=== PATIENT | female | born 1985 | race African-American/Black ===

== ENCOUNTER 2017-01-17 08:10 | Inpatient (IN) | payer OTHER ==
[~2017-01-17] VITALS: Ht 162.6 cm; Wt 66.0 kg
[2017-01-17] VITALS (7 sets, daily range): BP systolic 102–116; BP diastolic 58–71
[~2017-01-17 08:10] MED LIST: DOXYCYCLINE HY100 MG PO; PRENATAL TABLE1 EAC3 PO
[2017-01-17 09:27] LABS: EOSINOPHIL (%) 0.4 % (0-5); HEMATOCRIT 33.1 % (36.0-46.0); IMMATURE GRANULOCYTE (%) 0.4 % (0.0-0.7); INSTRUMENT ABS NEUTROPHIL CT 2.8 K/uL; LYMPHOCYTE COUNT 1.8 K/uL (1.0-2.8); MCH 28.2 PG (29.0-34.0); MCHC 32.3 G/DL (30.0-36.0); MCV 87.1 FL (83-99); MEAN PLAT.VOLUME 10.5 uM^3 (9.5-12.4); MONOCYTE COUNT 0.5 K/uL (0-0.8); NEUTROPHIL (%) 54.2 % (45-76); NEUTROPHIL COUNT 2.8 K/uL (1.8-6.4); PLATELET COUNT 175 K/uL (156-360); RBC DIS.WIDTH-SD 38.5 % (39-53); WHITE BLOOD COUNT 5.1 K/uL (4.1-10.2)
[2017-01-17 11:22] LABS: AMPHETAMINES QUANT VALUE 0 NG/ML; BARBITUATES QUANT VALUE 0 NG/ML; BENZODIAZEPINES QUANT VALUE 0 NG/ML; BENZODIAZEPINES, URINE SCREEN Negative (200 ng/mL); OPIATES QUANTITATIVE VALUE 0 NG/ML; PHENCYCLIDINE QUANT VALUE 0 NG/ML
[2017-01-18 03:06] VITALS: BP 114/83
[2017-01-18 07:26] LABS: EOSINOPHIL (%) 0.1 % (0-5); HEMATOCRIT 27.4 % (36.0-46.0); IMMATURE GRANULOCYTE (%) 0.4 % (0.0-0.7); INSTRUMENT ABS NEUTROPHIL CT 5.4 K/uL; LYMPHOCYTE COUNT 2.1 K/uL (1.0-2.8); MCH 28.6 PG (29.0-34.0); MCHC 32.5 G/DL (30.0-36.0); MCV 88.1 FL (83-99); MEAN PLAT.VOLUME 10.4 uM^3 (9.5-12.4); MONOCYTE (%) 9.1 % (3-12); MONOCYTE COUNT 0.8 K/uL (0-0.8); NEUTROPHIL (%) 65.6 % (45-76); NEUTROPHIL COUNT 5.4 K/uL (1.8-6.4); PLATELET COUNT 148 K/uL (156-360); RBC DIS.WIDTH-CV 12.1 % (11.8-14.6); RBC DIS.WIDTH-SD 38.8 % (39-53); RED BLOOD COUNT 3.11 M/uL (3.80-5.20); WHITE BLOOD COUNT 8.3 K/uL (4.1-10.2)
[2017-01-18 07:47] VITALS: BP 123/77
[2017-01-18 14:41] VITALS: BP 106/66
[2017-01-18 19:27] VITALS: BP 131/86
[2017-01-18 23:38] VITALS: BP 121/76
[2017-01-19 07:00] VITALS: BP 115/66
[2017-01-19] MEDS ORDERED: FERROUS SULFAT325 MG PO (11:32)
[2017-01-19] MEDS ORDERED: ASCORBIC ACID500 M3 PO (11:32)
[2017-01-19] MEDS ORDERED: IBUPROFEN800 MG PO (11:32)
[2017-01-19] MEDS ORDERED: ENDOCET 5-3251 EACH PO (11:32)
== END 2017-01-19 17:37 | disposition home or self-care (01) | DRG 765 ==
LOC: 2WEST 08:10 → 2SOUTH 12:53 → 2WEST 01-19 17:37
PROVIDERS: Obstetrics & Gynecology Obstetrics
PROC: 10D00Z1 Extraction of Products of Conception, Low, Open Approach (ICD-10-PCS; principal; 2017-01-17)
DX: O34.219 Maternal care for unspecified type scar from previous cesarean delivery (principal); D62 Acute posthemorrhagic anemia; Z37.0 Single live birth; Z3A.37 37 weeks gestation of pregnancy; O99.02 Anemia complicating childbirth; O99.824 Streptococcus B carrier state complicating childbirth; O69.81X1 Labor and delivery complicated by cord around neck, without compression, fetus 1; N73.6 Female pelvic peritoneal adhesions (postinfective)
CPT/HCPCS: 80306 90; 85025; 86900; 86901; J0690; J1100; J1885; J2274; J2405; J3010; J7050; J7120